=== PATIENT | male | born 1975 | race Caucasian/White ===

== ENCOUNTER → 2018-09-02 | Outpatient (CLI) | payer BC ==
[~2018-09-02] MED LIST: ALBUTEROL2.5 MG/31 INH; CLARITIN10 MG; PREDNISONE 20 M20 M1 PO; PROAIR HFA8.5 GM; SUDAFED30 MG
== END ==
LOC: M.RAD 09:18
DX: M79.641 Pain in right hand (principal)

== ENCOUNTER → 2018-09-07 | Outpatient (CLI) | payer BC | LOC: M.ULTRA 07:48 | DX: K76.0 Fatty (change of) liver, not elsewhere classified (principal); I51.7 Cardiomegaly; Z90.49 Acquired absence of other specified parts of digestive tract ==